=== PATIENT | male | born 1970 | race Caucasian/White ===

== ENCOUNTER 2021-06-20 18:41 | Inpatient (IN) | payer MEDICAID, OTHER ==
[~2021-06-20] VITALS: Ht 177.8 cm; Wt 79.5 kg
[2021-06-20 20:20] LABS: BASO # 0.1 x10^3/uL (0.0-0.2); BASO % 1 % (0-3); EOS # 0.4 x10^3/uL (0.0-0.7); EOS % 4 % (0-3); HEMATOCRIT 40.9 % (39.0-53.0); HEMOGLOBIN 14.2 g/dL (13.0-17.5); LYMPH # 1.3 x10^3/uL (1.0-4.8); LYMPH % 14 % (24-48); MEAN CORPUSCULAR HEMOGLOBIN 30 pg (25-35); MEAN CORPUSCULAR HGB CONC 35 g/dL (31-37); MEAN CORPUSCULAR VOLUME 87 fL (79-100); MONO % 10 % (0-9); NEUT # 6.7 x10^3/uL (1.8-7.7); NEUT % 72 % (31-73); PLATELET COUNT 549 x10^3/uL (140-400); RED BLOOD COUNT 4.72 x10^6/uL (4.30-5.70); RED CELL DISTRIBUTION WIDTH 17.9 % (11.5-14.5); WHITE BLOOD COUNT 9.4 x10^3/uL (4.0-11.0)
[2021-06-20 20:28] LABS: CALCIUM 9.1 mg/dL (8.5-10.1); CREATININE 0.9 mg/dL (0.7-1.3); POTASSIUM 4.9 mmol/L (3.5-5.1)
[2021-06-20 20:33] LABS: ALBUMIN 3.4 g/dL (3.4-5.0); ALBUMIN/GLOBULIN RATIO 0.9 (1.0-1.7); TOTAL BILIRUBIN 0.2 mg/dL (0.2-1.0); TOTAL PROTEIN 7.4 g/dL (6.4-8.2)
--- NOTE | 2021-06-20 20:38 | PHYS DOC ---
Past Medical History Additional Past Medical Histor: covid in May Past Surgical History: Other Additional Past Surgical Histo: cardiac stents 2014, hernia, L femur, L hip General Adult EDM: Chief Complaint: FOOT INJURY PAIN HPI: HPI: Patient is a 50 year old male with a past medical history of diabetes presents with the chief complaint of discolored left toes. Associated symptoms include swelling, pain, and paresthesia. Patient symptoms of swelling, pain, paresthesia started around the time patient was diagnoised with covid on May 17. Patient was hospitalized at [facility] for COVID due to hypoxia. Dscoloration of toes ON and OFF since covid diagnosis. Toes of left foot include 2nd, 3rd, 5th and heal. Patient denies any chest pain or shortness of breath. Review of Systems: Review of Systems: Constitutional: Denies fever or chills. [] Eyes: Denies change in visual acuity. [] HENT: Denies nasal congestion or sore throat. [] Respiratory: Denies cough or shortness of breath. [] Cardiovascular: Denies chest pain or edema. [] GI: Denies abdominal pain, nausea, vomiting, bloody stools or diarrhea. [] : Denies dysuria. [] Musculoskeletal: Denies back pain or joint pain. [positive foot pain] Integument: Denies rash. [positive ischemic] Neurologic: Denies headache, focal weakness or sensory changes. [] Endocrine: Denies polyuria or polydipsia. [] Lymphatic: Denies swollen glands. [] Psychiatric: Denies depression or anxiety. [] Heart Score: C/O Chest Pain: N/A Risk Factors: Risk Factors: DM, Current or recent (<one month) smoker, HTN, HLP, family history of CAD, obesity. Risk Scores: Score 0 - 3: 2.5% MACE over next 6 weeks - Discharge Home Score 4 - 6: 20.3% MACE over next 6 weeks - Admit for Clinical Observation Score 7 - 10: 72.7% MACE over next 6 weeks - Early Invasive Strategies Allergies: Allergies: Allergies Coded Allergies Type Severity Reaction Last Updated Verified codeine Allergy Mild n/v 06/20/21 Yes morphine Allergy Mild n/v 06/20/21 Yes Physical Exam: PE: Constitutional: Well developed, well nourished, no acute distress, non-toxic appearance. [] HENT: Normocephalic, atraumatic, bilateral external ears normal, oropharynx moist, no oral exudates, nose normal. [] Eyes: PERRLA, EOMI, conjunctiva normal, no discharge. [] Neck: Normal range of motion, no tenderness, supple, no stridor. [] Cardiovascular:Heart rate regular rhythm, no murmur [] Lungs & Thorax: Bilateral breath sounds clear to auscultation [] Abdomen: Bowel sounds normal, soft, no tenderness, no masses, no pulsatile masses. [] Skin: Warm, dry, toes and top of left foot erythema, black discoloration of Toes on left foot 2nd, 3rd, 5th and heal. Back: No tenderness, no CVA tenderness. [] Extremities: No tenderness, no cyanosis, no clubbing, ROM intact, no edema. [] Neurologic: Alert and oriented X 3, normal motor function, normal sensory function, no focal deficits noted. [] Psychologic: Affect normal, judgement normal, mood normal. [] Current Patient Data: Labs: Laboratory Tests Test 06/20/21 19:55 White Blood Count 9.4 x10^3/uL (4.0-11.0) Red Blood Count 4.72 x10^6/uL (4.30-5.70) Hemoglobin 14.2 g/dL (13.0-17.5) Hematocrit 40.9 % (39.0-53.0) Mean Corpuscular Volume 87 fL (79-100) Mean Corpuscular Hemoglobin 30 pg (25-35) Mean Corpuscular Hemoglobin Concent 35 g/dL (31-37) Red Cell Distribution Width 17.9 % (11.5-14.5) H Platelet Count 549 x10^3/uL (140-400) H Neutrophils (%) (Auto) 72 % (31-73) Lymphocytes (%) (Auto) 14 % (24-48) L Monocytes (%) (Auto) 10 % (0-9) H Eosinophils (%) (Auto) 4 % (0-3) H Basophils (%) (Auto) 1 % (0-3) Neutrophils # (Auto) 6.7 x10^3/uL (1.8-7.7) Lymphocytes # (Auto) 1.3 x10^3/uL (1.0-4.8) Monocytes # (Auto) 1.0 x10^3/uL (0.0-1.1) Eosinophils # (Auto) 0.4 x10^3/uL (0.0-0.7) Basophils # (Auto) 0.1 x10^3/uL (0.0-0.2) Laboratory Tests 06/20/21 19:55 Vital Signs: Vital Signs Date Time Temp Pulse Resp B/P (MAP) Pulse Ox O2 Delivery O2 Flow Rate FiO2 06/20/21 19:43 98.5 89 20 131/73 93 Room Air 98.5 EKG: EKG: [] Radiology/Procedures: Radiology/Procedures: [] Impression: Exam: CT of abdomen, pelvis and bilateral lower extremities INDICATION: Ischemic toes, history of Covid TECHNIQUE: Sequential axial images through the abdomen, pelvis and left lower extremities obtained following the administration of 100 mL of Omni 350 IV contrast. Sagittal and coronal reformatted images were reconstructed from the axial data and reviewed. 3-D reformatted images were reconstructed from the axial data and reviewed. Exposure: One or more of the following in the visualized dose reduction techniques were utilized for this examination: 1. Automated exposure control 2. Adjustment of the MA and/or KV according to patient size 3. Use of iterative of reconstructive technique Comparisons: None FINDINGS: Heart size is normal. No pericardial effusion. Patchy airspace disease at lung bases bilaterally. No pleural effusion. Visualized portions of the liver, spleen, pancreas, gallbladder and adrenals are unremarkable. No perinephric inflammation or hydronephrosis. No renal or ureteral calculi are identified. Bladder is partially distended and not well evaluated. Prostate is not enlarged. Large amount of stool is noted in the colon. The remaining visualized portions of the large and small bowel are unremarkable. No obstruction. No free intra- abdominal air or fluid identified within the [id number]. Abdominal aorta has normal course and caliber. No enlarged intra-abdominal lymph nodes are identified. No suspicious osseous lesions or acute fractures. Left lower extremity: Common femoral artery is patent. Profunda artery is patent. SFA is patent. Minimal plaque at the popliteal artery without significant stenosis. Anterior artery is patent to the level of the ankle. There is abrupt cut off of the posterior tibial artery at the level of the mid lower leg with re-opacification more distally and remains patent to the ankle. Peroneal artery is patent to the level of the distal tibia. IMPRESSION: 1. Abrupt cut off of the left posterior tibial artery at the level of the mid lower leg, with re-opacification distally which may be secondary to collateral flow. 2. Anterior tibial artery is patent to level the ankle. Peroneal artery is patent to level of the distal tibia. 3. Extensive bilateral airspace disease in the visualized lower lungs favored be infectious or inflammatory in etiology, consistent with history of Covid. Electronically signed by: Sai Dietz MD (06/20/2021 10:50 PM) [facility] DICTATED and SIGNED BY: SAI DIETZ MD DATE: 06/20/21 [id number] 0 Course & Med Decision Making: Course & Med Decision Making Pertinent Labs and Imaging studies reviewed. (See chart for details) [] Patient was evaluated for chief complaint. Work-up consisted of laboratory anal ysis and radiologic imaging. Results reviewed and discussed with patient. Patient found to have arterial occlusion left lower extremity. Patient was also found to be in lactic acidosis. Treatment included IV fluids. Patient was heparinized. Admitted to the hospitalist with vascular surgery consult (Dr Cardenas). Antonio Disclaimer: Antonio Disclaimer: This electronic medical record was generated, in whole or in part, using a voice recognition dictation system. Departure Departure Impression: Primary Impression: Ischemic toe Additional Impression: Arterial occlusion Disposition: ADMITTED INPATIENT Condition: STABLE Referrals: TENNILLE KHOURY MD (PCP) ROQUE RUIZ DO Jun 20, 2021 20:38
--- NOTE | 2021-06-20 21:19 | RAD ---
Exam: Left foot 3 views INDICATION: Pain, discoloration TECHNIQUE: Frontal, lateral and oblique views of the left foot Comparisons: None FINDINGS: Bone mineralization is normal. No acute or healed fractures. Soft tissues are unremarkable. Joint spa hallie are well-maintained. IMPRESSION: No acute osseous abnormality. Electronically signed by: Sai Bailey MD (06/20/2021 9:17 PM) [facility]
[2021-06-20] MEDS ORDERED: HYDROcodone/APAP 5/325MG 1 TAB TABLET PO ONE (21:30)
[2021-06-20] MEDS ORDERED: CONTRAST GIVEN. MC PRN (21:45)
[2021-06-20] MEDS ORDERED: IOHEXOL 350 MG/ML 100 ML VIAL. IV ONE (22:00)
[2021-06-20] MEDS ORDERED: IV NORMAL SALINE 1000ML BAG 1,000 ML IV ONE ×2 (22:00→23:30)
--- NOTE | 2021-06-20 22:52 | RAD ---
Exam: CT of abdomen, pelvis and bilateral lower extremities INDICATION: Ischemic toes, history of Covid TECHNIQUE: Sequential axial images through the abdomen, pelvis and left lower extremities obtained fo llowing the administration of 100 mL of Omni 350 IV contrast. Sagittal and coronal reformatted images were reconstructed from the axial data and reviewed. 3-D reformatted images were reconstructed from the axial data and reviewed. Exposure: One or more of the following in the visualized dose reduction techniques were utilized for this examination: 1. Automated exposure control 2. Adjustment of the MA and/or KV according to patient size 3. Use of iterative of reconstructive technique Comparisons: None FINDINGS: Heart size is normal. No pericardial effusion. Patchy airspace disease at lung bases bilaterally. No pleural effusion. Visualized portions of the liver, spleen, pancreas, gallbladder and adrenals are unremarkable. No perinephric inflammation or hydronephrosis. No renal or ureteral calculi are identified. Bladder is partially distended and not well evaluated. Prostate is not enlarged. Large amount of stool is noted in the colon. The remaining visualized portions of the large and small bowel are unremarkable. No obstruction. No free intra-abdominal air or fluid identified within the [id number]. Abdominal aorta has normal course and caliber. No enlarged intra-abdominal lymph nodes are identified. No suspicious osseous lesions or acute fractures. Left lower extremity: Common femoral artery is patent. Profunda artery is patent. SFA is patent. Minimal plaque at the popliteal artery without significant stenosis. Anterior artery is patent to the level of the ankle. There is abrupt cut off of the posterior tibial artery at the level of the mid lower leg with re-opac ification more distally and remains patent to the ankle. Peroneal artery is patent to the level of the distal tibia. IMPRESSION: 1. Abrupt cut off of the left posterior tibial artery at the level of the mid lower leg, with re-opa cification distally which may be secondary to collateral flow. 2. Anterior tibial artery is patent to level the ankle. Peroneal artery is patent to level of the di stal tibia. 3. Extensive bilateral airspace disease in the visualized lower lungs favored be infectious or infla mmatory in etiology, consistent with history of Covid. Electronically signed by: Sai Bailey MD (06/20/2021 10:50 PM) [facility]
[2021-06-20] MEDS ORDERED: ANTI-COAG MONITOR BY PHARMACY. MC PRN (23:15)
[2021-06-20] MEDS ORDERED: HEPARIN for IV BOLUS 10,000 UNIT/10 ML VIAL. IV PRN (23:15)
[2021-06-21] VITALS (7 sets, daily range): BP systolic 102–171; BP diastolic 57–83
[2021-06-21] MEDS ORDERED: fentaNYL PF VIAL 100 MCG/2 ML VIAL ONE (00:03)
[2021-06-21] MEDS ORDERED: ONDANSETRON PF 4 MG/2 ML VIAL. IVP PRN (00:15)
[2021-06-21] MEDS: HEPARIN 25,000UTS/250ML PREMIX 250 ML IV PRN ×2 (00:26→16:41)
[2021-06-21] MEDS ORDERED: fentaNYL PF VIAL 100 MCG/2 ML VIAL IVP ONE (00:30)
[2021-06-21] MEDS ORDERED: HEPARIN for IV BOLUS 10,000 UNIT/10 ML VIAL. IV ONE (00:30)
[2021-06-21] MEDS ORDERED: HYDROmorphone 2 MG/ML VIAL IVP ONE (01:00)
[2021-06-21] MEDS: fentaNYL PF VIAL 100 MCG/2 ML VIAL IVP PRN ×3 (03:18→19:55)
[2021-06-21] MEDS ORDERED: TRAM50TA PO (04:05)
[2021-06-21] MEDS ORDERED: METF10007 PO (04:05)
--- NOTE | 2021-06-21 07:25 | PDOC1 ---
History and Physical Date of Admission Date of Admission DATE: 06/21/21 TIME: 07:20 Identification/Chief Complaint Chief Complaint Left foot discoloration Source Source: Patient History of Present Illness History of Present Illness Mr Beltran is a 50 year old male with a past medical history of diabetes, CAD s/p MARLA 2013 presents with the chief complaint of discolored left toes. Associated symptoms include swelling, pain, and paresthesia. Patient symptoms of swelling, pain, paresthesia started around the time patient was diagnosed with covid on May 17. Patient was hospitalized at [facility] for COVID due to hypoxia. Since discharge he is weaned off oxygen and is continue to take his home aspirin his home diabetic medications and had just started a walking routine morning he noted this discoloration 06/15/2021. Dscoloration of toes ON and OFF since covid diagnosis. Toes of left foot include 2nd, 3rd, 5th and heel. WBC 9.4, Hb 14.2, platelets 549, NA 142, K4.9, CR 0.9 glucose 315. LFTs within normal laboratory limits Left foot radiograph acute abnormality. Left leg CTA with abrupt cut off of the left posterior tibial artery at the level of the mid lower leg, with re-opacification distally which may be secondary to collateral flow. Admitted for further care Past Medical History Cardiovascular: CAD, HTN Endocrine: Diabetes Past Surgical History Past Surgical History: Hernia Repair, Total hip replacement (left hip) Family History Family History: Diabetes, Heart Disease Social History Smoke: No ALCOHOL: none Drugs: None Current Problem List Problem List Problems Medical Problems: (1) Arterial occlusion Status: Acute (2) Ischemic toe Status: Acute Current Medications Current Medications Current Medications Acetaminophen/ Hydrocodone Bitart (Lortab 5/325) 1 tab 1X ONCE PO Last administered on 06/20/21at 21:10; Start 06/20/21 at 21:30; Stop 06/20/21 at 21: 31; Status DC Sodium Chloride 1,000 ml @ 1,000 mls/hr 1X ONCE IV Last administered on 06/20/21at 21:30; Start 06/20/21 at 22:00; Stop 06/20/21 at 22:59; Status DC Iohexol (Omnipaque 350 Mg/ml) 100 ml 1X ONCE IV Last administered on 06/20/21at 22:00; Start 06/20/21 at 22:00; Stop 06/20/21 at 22:01; Status DC Info (CONTRAST GIVEN -- Rx MONITORING) 1 each PRN DAILY PRN MC SEE COMMENTS; Start 06/20/21 at 21:45; Stop 06/22/21 at 21:44 Sodium Chloride 1,000 ml @ 1,000 mls/hr 1X ONCE IV Last administered on 06/20/21at 23:30; Start 06/20/21 at 23:30; Stop 06/21/21 at 00:29; Status DC Heparin Sodium/ Dextrose 250 ml @ 0 mls/hr CONT PRN IV PER PROTOCOL Last administered on 06/21/21at 00:26; Start 06/20/21 at 23:15 Heparin Sodium (Porcine) (Heparin Sodium) 2,300 unit PRN Q6HRS PRN IV FOR UFH LEVEL LESS THAN 0.2; Start 06/20/21 at 23:15 Heparin Sodium (Porcine) (Heparin Sodium) 1,150 unit PRN Q6HRS PRN IV FOR UFH LEVEL 0.2 - 0.29; Start 06/20/21 at 23:15 Info (Anti-Coagulation Monitoring By Pharmacy) 1 each PRN DAILY PRN MC PER PROTOCOL Last administered on 06/21/21at 02:48; Start 06/20/21 at 23:15 Fentanyl Citrate (Fentanyl 2ml Vial) 50 mcg 1X ONCE IVP Last administered on 06/21/21at 00:06; Start 06/21/21 at 00:30; Stop 06/21/21 at 00:31; Status DC Fentanyl Citrate (Fentanyl 2ml Vial) 100 mcg STK-MED ONCE .ROUTE ; Start 06/21/21 at 00:03; Stop 06/21/21 at 00:03; Status DC Ondansetron HCl (Zofran) 4 mg PRN Q8HRS PRN IVP NAUSEA/VOMITING 1ST CHOICE; Start 06/21/21 at 00:15; Stop 06/22/21 at 00:14 Fentanyl Citrate (Fentanyl 2ml Vial) 50 mcg PRN Q1HR PRN IVP SEVERE PAIN 7-10 Last administered on 06/21/21at 03:18; Start 06/21/21 at 00:15; Stop 06/22/21 at 00:14 Heparin Sodium (Porcine) (Heparin Sodium) 4,000 unit 1X ONCE IV Last administered on 06/21/21at 00:24; Start 06/21/21 at 00:30; Stop 06/21/21 at 00:31; Status DC Hydromorphone HCl (Dilaudid) 0.5 mg 1X ONCE IVP Last administered on 06/21/21at 00:32; Start 06/21/21 at 01:00; Stop 06/21/21 at 01:01; Status DC Active Scripts Active Reported Metformin Hcl 1,000 Mg Tablet 1,000 Mg PO BIDWMEALS Tramadol Hcl 50 Mg Tablet 50 Mg PO DAILY PRN Allergies Allergies: Coded Allergies: codeine (Verified Allergy, Mild, n/v, 06/20/21) morphine (Verified Allergy, Mild, n/v, 06/20/21) ROS General: YES: Fatigue, Malaise; No: Chills, Night Sweats, Appetite, Other PSYCHOLOGICAL ROS: No: Anxiety, Behavioral Disorder, Concentration difficultie, Decreased libido, Depression, Disorientation, Hallucinations, Hostility, Irritablity, Memory difficulties, Mood Swings, Obsessive thoughts, Physical abuse, Sexual abuse, Sleep disturbances, Suicidal ideation, Other Eyes: No Blurry vision, No Decreased vision, No Double vision, No Dry eyes, No Excessive tearing, No Eye Pain, No Itchy Eyes, No Loss of vision, No Photophobia, No Scotomata, No Uses contacts, No Uses glasses, No Other HEENT: No: Heacaches, Visual Changes, Hearing change, Nasal congestion, Nasal discharge, Oral lesions, Sinus pain, Sore Throat, Epistaxis, Sneezing, Snoring, Tinnitus, Vertigo, Vocal changes, Other ALLERGY AND IMMUNOLOGY: No: Hives, Insect Bite Sensitivity, Itchy/Watery Eyes, Nasal Congestion, Post Nasal Drip, Seasonal Allergies, Other Hematological and Lymphatic: No: Bleeding Problems, Blood Clots, Blood Transfusions, Brusing, Night Sweats, Pallor, Swollen Lymph Nodes, Other ENDOCRINE: No: Breast Changes, Galactorrhea, Hair Pattern Changes, Hot Flashes, Malaise/lethargy, Mood Swings, Palpitations, Polydipsia/polyuria, Skin Changes, Temperature Intolerance, Unexpected Weight Changes, Other Breast: No New/Changing Breast Lumps, No Nipple changes, No Nipple discharge, No Other Respiratory: No: Cough, Hemoptysis, Orthopnea, Pleuritic Pain, Shortness of breath, SOB with excertion, Sputum Changes, Stridor, Tachypnea, Wheezing, Other Cardiovascular: No Chest Pain, No Palpitations, No Orthopnea, No Paroxysmal Noc. Dyspnea, No Edema, No Lt Headedness, No Other Gastrointestinal: No Nausea, No Vomiting, No Abdominal Pain, No Diarrhea, No Constipation, No Melena, No Hematochezia, No Other Genitourinary: No Dysuria, No Frequency, No Incontinence, No Hematuria, No Retention, No Discharge, No Urgency, No Pain, No Flank Pain, No Other, No , No , No , No , No , No , No Musculoskeletal: Yes Gait Disturbance, Yes Joint Pain; No Joint Stiffness, No Joint Swelling, No Muscle Pain, No Muscular Weakness, No Pain In:, No Swelling In:, No Other Neurological: No Behavorial Changes, No Bowel/Bladder ControlChng, No Confusion, No Dizziness, No Gait Disturbance, No Headaches, No Impaired Coord/balance, No Memory Loss, No Numbness/Tingling, No Seizures, No Speech Problems, No Tremors, No Visual Changes, No Weakness, No Other Skin: No Dry Skin, No Eczema, No Hair Changes, No Lumps, No Mole Changes, No Mottling, No Nail Changes, No Pruritus, No Rash, No Skin Lesion Changes, No Other, No Acne Physical Exam General: Alert, Oriented X3, Cooperative, mild distress HEENT: Atraumatic, PERRLA, EOMI, Mucous membr. moist/pink Lungs: Clear to auscultation, Normal air movement Heart: S1S2, RRR, no thrills, no rubs, no gallops, no murmurs Abdomen: Normal bowel sounds, Soft, No tenderness, No hepatosplenomegaly, No masses Rectal Exam: not examined Skin: No breakdown, No significant lesion, Other (Close discoloration of distal left third and fifth patient meets criteria for outpatient COVID-19 treatment to prevent worsening disease based on age greater than 50 and coronary artery disease.1) Patient has been given the fact sheet for patients and caregivers for COVID 19 and treatment2) informed of alternatives to receiving what is REGEN-CoV - Casirivimab + Imdevimab3) Patient informed that Regen-CoV is an approved drug and is authorized by the FDA under emergency use authorization..) Neuro: Normal gait, Normal speech, Strength at 5/5 X4 ext, Normal tone, Sensation intact, Cranial nerves 3-12 NL, Reflexes 2+ Psych/Mental Status: Mental status NL, Mood NL Vitals Vitals Vital Signs Date Time Temp Pulse Resp B/P (MAP) Pulse Ox O2 Delivery O2 Flow Rate FiO2 06/21/21 04:00 98.5 78 20 138/78 (98) 90 Room Air 98.5 Labs Labs Laboratory Tests Test 06/20/21 19:55 06/20/21 23:08 White Blood Count 9.4 x10^3/uL (4.0-11.0) Red Blood Count 4.72 x10^6/uL (4.30-5.70) Hemoglobin 14.2 g/dL (13.0-17.5) Hematocrit 40.9 % (39.0-53.0) Mean Corpuscular Volume 87 fL (79-100) Mean Corpuscular Hemoglobin 30 pg (25-35) Mean Corpuscular Hemoglobin Concent 35 g/dL (31-37) Red Cell Distribution Width 17.9 % (11.5-14.5) Platelet Count 549 x10^3/uL (140-400) Neutrophils (%) (Auto) 72 % (31-73) Lymphocytes (%) (Auto) 14 % (24-48) Monocytes (%) (Auto) 10 % (0-9) Eosinophils (%) (Auto) 4 % (0-3) Basophils (%) (Auto) 1 % (0-3) Neutrophils # (Auto) 6.7 x10^3/uL (1.8-7.7) Lymphocytes # (Auto) 1.3 x10^3/uL (1.0-4.8) Monocytes # (Auto) 1.0 x10^3/uL (0.0-1.1) Eosinophils # (Auto) 0.4 x10^3/uL (0.0-0.7) Basophils # (Auto) 0.1 x10^3/uL (0.0-0.2) Sodium Level 142 mmol/L (136-145) Potassium Level 4.9 mmol/L (3.5-5.1) Chloride Level 103 mmol/L (98-107) Carbon Dioxide Level 27 mmol/L (21-32) Anion Gap 12 (6-14) Blood Urea Nitrogen 19 mg/dL (8-26) Creatinine 0.9 mg/dL (0.7-1.3) Estimated GFR (Cockcroft-Gault) 89.0 BUN/Creatinine Ratio 21 (6-20) Glucose Level 315 mg/dL (70-99) Lactic Acid Level 3.3 mmol/L (0.4-2.0) 2.4 mmol/L (0.4-2.0) Calcium Level 9.1 mg/dL (8.5-10.1) Total Bilirubin 0.2 mg/dL (0.2-1.0) Aspartate Amino Transf (AST/SGOT) 22 U/L (15-37) Alanine Aminotransferase (ALT/SGPT) 31 U/L (16-63) Alkaline Phosphatase 94 U/L (46-116) Total Protein 7.4 g/dL (6.4-8.2) Albumin 3.4 g/dL (3.4-5.0) Albumin/Globulin Ratio 0.9 (1.0-1.7) Laboratory Tests Test 06/20/21 19:55 06/20/21 23:08 White Blood Count 9.4 x10^3/uL (4.0-11.0) Red Blood Count 4.72 x10^6/uL (4.30-5.70) Hemoglobin 14.2 g/dL (13.0-17.5) Hematocrit 40.9 % (39.0-53.0) Mean Corpuscular Volume 87 fL (79-100) Mean Corpuscular Hemoglobin 30 pg (25-35) Mean Corpuscular Hemoglobin Concent 35 g/dL (31-37) Red Cell Distribution Width 17.9 % (11.5-14.5) Platelet Count 549 x10^3/uL (140-400) Neutrophils (%) (Auto) 72 % (31-73) Lymphocytes (%) (Auto) 14 % (24-48) Monocytes (%) (Auto) 10 % (0-9) Eosinophils (%) (Auto) 4 % (0-3) Basophils (%) (Auto) 1 % (0-3) Neutrophils # (Auto) 6.7 x10^3/uL (1.8-7.7) Lymphocytes # (Auto) 1.3 x10^3/uL (1.0-4.8) Monocytes # (Auto) 1.0 x10^3/uL (0.0-1.1) Eosinophils # (Auto) 0.4 x10^3/uL (0.0-0.7) Basophils # (Auto) 0.1 x10^3/uL (0.0-0.2) Sodium Level 142 mmol/L (136-145) Potassium Level 4.9 mmol/L (3.5-5.1) Chloride Level 103 mmol/L (98-107) Carbon Dioxide Level 27 mmol/L (21-32) Anion Gap 12 (6-14) Blood Urea Nitrogen 19 mg/dL (8-26) Creatinine 0.9 mg/dL (0.7-1.3) Estimated GFR (Cockcroft-Gault) 89.0 BUN/Creatinine Ratio 21 (6-20) Glucose Level 315 mg/dL (70-99) Lactic Acid Level 3.3 mmol/L (0.4-2.0) 2.4 mmol/L (0.4-2.0) Calcium Level 9.1 mg/dL (8.5-10.1) Total Bilirubin 0.2 mg/dL (0.2-1.0) Aspartate Amino Transf (AST/SGOT) 22 U/L (15-37) Alanine Aminotransferase (ALT/SGPT) 31 U/L (16-63) Alkaline Phosphatase 94 U/L (46-116) Total Protein 7.4 g/dL (6.4-8.2) Albumin 3.4 g/dL (3.4-5.0) Albumin/Globulin Ratio 0.9 (1.0-1.7) Images Images Left foot radiograph: Bone mineralization is normal. No acute or healed fractures. Soft tissues are unremarkable. Joint spaces are well-maintained. IMPRESSION: No acute osseous abnormality. CT of abdomen, pelvis and bilateral lower extremities Heart size is normal. No pericardial effusion. Patchy airspace disease at lung bases bilaterally. No pleural effusion. Visualized portions of the liver, spleen, pancreas, gallbladder and adrenals are unremarkable. No perinephric inflammation or hydronephrosis. No renal or ureteral calculi are identified. Bladder is partially distended and not well evaluated. Prostate is not enlarged. Large amount of stool is noted in the colon. The remaining visualized portions of the large and small bowel are unremarkable. No obstruction. No free intra- abdominal air or fluid identified within the [id number]. Abdominal aorta has normal course and caliber. No enlarged intra-abdominal lymph nodes are identified. No suspicious osseous lesions or acute fractures. Left lower extremity: Common femoral artery is patent. Profunda artery is patent. SFA is patent. Minimal plaque at the popliteal artery without significant stenosis. Anterior artery is patent to the level of the ankle. There is abrupt cut off of the posterior tibial artery at the level of the mid lower leg with re-opacification more distally and remains patent to the ankle. Peroneal artery is patent to the level of the distal tibia. IMPRESSION: 1. Abrupt cut off of the left posterior tibial artery at the level of the mid lower leg, with re-opacification distally which may be secondary to collateral flow. 2. Anterior tibial artery is patent to level the ankle. Peroneal artery is patent to level of the distal tibia. 3. Extensive bilateral airspace disease in the visualized lower lungs favored be infectious or inflammatory in etiology, consistent with history of Covid. VTE Prophylaxis Ordered VTE Prophylaxis Devices: No VTE Pharmacological Prophylaxi: Yes Assessment/Plan Assessment/Plan A/P: Left foot pain -on heparin GTT for concern for some mild limb ischemia. Vascular surgery consulted.. Pain control with IV Dilaudid and p.o. hydrocodone. Diabetes -on Metformin for contrast administration. Hold Invokana. Sliding scale insulin CAD s/p MARLA 2013 -continue ASA. Home meds. HTN - cont home meds HLD - cont statin FEN - ADA diet PPX - heparin GTT CODE - FULL Dispo - inpatient Justifications for Admission Other Justification MAKENZIE DAVILA MD Jun 21, 2021 07:25
[2021-06-21] MEDS ORDERED: ACETAMINOPHEN 325 MG TABLET. PO PRN (07:30)
[2021-06-21] MEDS ORDERED: hydrALAZINE 20 MG/ML VIAL. IVP PRN (07:30)
[2021-06-21] MEDS ORDERED: NITROGLYCERIN SUBLINGUAL 0.4 MG BOTTLE OF 25. SL PRN (07:30)
[2021-06-21] MEDS ORDERED: traMADol 50 MG TABLET PO PRN ×2 (07:30→14:00)
[2021-06-21] MEDS ORDERED: DEXTROSE 50% 25 GM / 50ML DISP.SYRIN. IV PRN (07:30)
[2021-06-21] MEDS: INSULIN LISPRO 300 UNITS/3 ML VIAL. SQ SCH ×3 (08:00→18:07)
[2021-06-21] MEDS: HEPARIN for IV BOLUS 10,000 UNIT/10 ML VIAL. IV PRN ×2 (09:54→17:04)
--- NOTE | 2021-06-21 10:33 | NUR ---
SW following. Discussed with RN, pt from home, room air, ada diet. Vascular following. RN advised no SW needs at this time. SW will continue to follow.
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
[2021-06-21] MEDS: HYDROcodone/APAP 7.5/325MG 1 TAB TABLET PO PRN ×2 (11:15→19:54)
[2021-06-21] MEDS ORDERED: DULA0.75 SQ (12:00)
[2021-06-21] MEDS ORDERED: CANA300T PO (12:00)
[2021-06-21] MEDS ORDERED: GLIP10TA13 PO (12:00)
[2021-06-21] MEDS ORDERED: OMEG1CAP2 PO (12:00)
[2021-06-21] MEDS ORDERED: MULT-732 PO (12:00)
[2021-06-21] MEDS ORDERED: LISI-517 PO (12:00)
[2021-06-21] MEDS ORDERED: ASPI-630 PO (12:00)
[2021-06-21] MEDS ORDERED: ATOR40TA59 PO (12:00)
[2021-06-21] MEDS ORDERED: ALBU2.5V8 IH (12:00)
[2021-06-21] MEDS ORDERED: PANT40TA77 PO (12:00)
[2021-06-21] MEDS ORDERED: ALBUTEROL SULFATE 2.5 MG/3 ML NEBU. INH PRN (14:00)
[2021-06-21] MEDS: glipiZIDE 5 MG TABLET PO SCH (16:38)
[2021-06-21] MEDS: OMEGA-3 FATTY ACIDS/FISH OIL 1,000 MG CAPSULE. PO SCH (19:54)
[2021-06-21] MEDS ORDERED: ZOLPIDEM 5 MG TABLET. PO PRN (20:00)
[2021-06-21] MEDS: ATORVASTATIN CALCIUM 40 MG TABLET. PO SCH (22:13)
[2021-06-22] VITALS (14 sets, daily range): BP systolic 112–153; BP diastolic 63–84
--- NOTE | 2021-06-22 01:38 | NUR ---
heparin drip off at midnight per Dr fernandez's order.
--- NOTE | 2021-06-22 07:19 | PDOC ---
[employer] PROGRESS NOTE Date of Service DOS: DATE: 06/22/21 TIME: 07:18 Chief Complaint Chief Complaint A/P: Left foot pain -on heparin GTT for concern for some mild limb ischemia vs or d/t embolic occlusion. Vascular surgery consulted.. Pain control with IV Dilaudid and p.o. hydrocodone. Diabetes -on Metformin for contrast administration. Hold Invokana. Sliding scale insulin CAD s/p MARLA 2013 -continue ASA. Home meds. HTN - cont home meds HLD - cont statin FEN - ADA diet PPX - heparin GTT CODE - FULL Dispo - inpatient History of Present Illness History of Present Illness Mr Beltran is a 50 year old male with a past medical history of diabetes, CAD s/p MARLA 2013 presents with the chief complaint of discolored left toes. Associated symptoms include swelling, pain, and paresthesia. Patient symptoms of swelling, pain, paresthesia started around the time patient was diagnosed with covid on May 17. Patient was hospitalized at [facility] for COVID due to hypoxia. Since discharge he is weaned off oxygen and is continue to take his home aspirin his home diabetic medications and had just started a walking routine morning he noted this discoloration 06/15/2021. Dscoloration of toes ON and OFF since covid diagnosis. Toes of left foot include 2nd, 3rd, 5th and heel. WBC 9.4, Hb 14.2, platelets 549, NA 142, K4.9, CR 0.9 glucose 315. LFTs within normal laboratory limits Left foot radiograph acute abnormality. Left leg CTA with abrupt cut off of the left posterior tibial artery at the level of the mid lower leg, with re-opacification distally which may be secondary to collateral flow. Admitted for further care On heparin GTT, to have angioplasty of left posterior tibial artery. Cardiology consulted by vascular surgery Vitals/I&O Vitals/I&O: Vital Signs Date Time Temp Pulse Resp B/P (MAP) Pulse Ox O2 Delivery O2 Flow Rate FiO2 06/22/21 03:12 98.3 76 20 112/65 (81) 94 Room Air 98.3 I & O 06/21/21 06/21/21 06/22/21 15:00 23:00 07:00 Output Total 700 ml 550 ml 600 ml Balance -700 ml -550 ml -600 ml Physical Exam General: Alert, Oriented X3, Cooperative, mild distress Abdomen: Normal bowel sounds, Soft, No tenderness, No hepatosplenomegaly, No masses Skin: No breakdown, No significant lesion, Other (Close discoloration of distal left third and fifth patient meets criteria for outpatient COVID-19 treatment to prevent worsening disease based on age greater than 50 and coronary artery disease.1) Patient has been given the fact sheet for patients and caregivers for COVID 19 and treatment2) informed of alternatives to receiving what is REGEN-CoV - Casirivimab + Imdevimab3) Patient informed that Regen-CoV is an approved drug and is authorized by the FDA under emergency use authorization..) Labs Labs: Laboratory Tests Test 06/21/21 08:30 06/21/21 08:45 06/21/21 11:19 06/21/21 16:10 Heparin Anti-Xa Act, Unfractionated < 0.10 IU/mL (0.30-0.70) 0.17 IU/mL (0.30-0.70) Glucose (Fingerstick) 199 mg/dL (70-99) 182 mg/dL (70-99) Test 06/21/21 17:12 06/21/21 20:53 06/21/21 22:45 06/21/21 23:10 Glucose (Fingerstick) 268 mg/dL (70-99) 216 mg/dL (70-99) SARS-CoV-2 Antigen (Rapid) Negative (NEGATIVE) Heparin Anti-Xa Act, Unfractionated 0.29 IU/mL (0.30-0.70) Assessment and Plan Assessmemt and Plan Problems Medical Problems: (1) Arterial occlusion Status: Acute (2) Ischemic toe Status: Acute Comment Review of Relevant I have reviewed the following items cherise (where applicable) has been applied. Medications: Current Medications Medications (Trade) Dose Ordered Sig/Anne Route PRN Reason Start Time Stop Time Status Last Admin Dose Admin Tramadol HCl (Ultram) 50 mg PRN Q6HRS PRN PO MODERATE PAIN, SEVERE PAIN 06/21/21 07:30 06/21/21 08:59 Insulin Human Lispro (HumaLOG) 0-9 UNITS TIDWMEALS SQ 06/21/21 08:00 06/21/21 18:07 Acetaminophen/ Hydrocodone Bitart (Lortab 7.5/325) 1 tab PRN Q6HRS PRN PO MOD - SEVERE PAIN, 2nd CHOICE 06/21/21 10:00 06/21/21 19:54 Atorvastatin Calcium (Lipitor) 40 mg DAILY PO 06/21/21 21:00 06/21/21 22:13 Glipizide (Glucotrol) 10 mg BIDBFRMEAL PO 06/21/21 16:30 06/21/21 16:38 Fish Oil (Fish Oil) 1,000 mg BID PO 06/21/21 21:00 06/21/21 19:54 Zolpidem Tartrate (Ambien) 5 mg PRN QHS PRN PO INSOMNIA 06/21/21 20:00 06/21/21 22:13 Justifications for Admission Other Justification MAKENZIE DAVILA MD Jun 22, 2021 07:19
[2021-06-22] MEDS ORDERED: PANTOPRAZOLE 40 MG TABLET.DR. PO SCH (07:30)
[2021-06-22] MEDS: glipiZIDE 5 MG TABLET PO SCH ×2 (07:30→16:07)
[2021-06-22] MEDS ORDERED: IODIXANOL 320 MG/ML 100 ML VIAL. ONE (07:33)
[2021-06-22] MEDS ORDERED: LIDOCAINE 1% Multi-Dose 20 ML VIAL. ONE (07:33)
--- NOTE | 2021-06-22 07:57 | PDOC1 ---
History and Physical Date of Procedure Date of Admission 06/22/21 Procedure Procedure Left lower extremity angiography with possible intervention Indication Indication Rest pain and ischemic toes left foot History of Present Illness Reason for Visit See H&P on 06/21 Past Medical History Past Medical History See note on 06/21 Current Medications Current Medications Current Medications Acetaminophen/ Hydrocodone Bitart (Lortab 5/325) 1 tab 1X ONCE PO Last administered on 06/20/21at 21:10; Start 06/20/21 at 21:30; Stop 06/20/21 at 21:31 ; Status DC Sodium Chloride 1,000 ml @ 1,000 mls/hr 1X ONCE IV Last administered on 06/20/21at 21:30; Start 06/20/21 at 22:00; Stop 06/20/21 at 22:59; Status DC Iohexol (Omnipaque 350 Mg/ml) 100 ml 1X ONCE IV Last administered on 06/20/21at 22:00; Start 06/20/21 at 22:00; Stop 06/20/21 at 22:01; Status DC Info (CONTRAST GIVEN -- Rx MONITORING) 1 each PRN DAILY PRN MC SEE COMMENTS; Start 06/20/21 at 21:45; Stop 06/22/21 at 21:44 Sodium Chloride 1,000 ml @ 1,000 mls/hr 1X ONCE IV Last administered on 06/20/21at 23:30; Start 06/20/21 at 23:30; Stop 06/21/21 at 00:29; Status DC Heparin Sodium/ Dextrose 250 ml @ 0 mls/hr CONT PRN IV PER PROTOCOL Last administered on 06/21/21at 16:41; Start 06/20/21 at 23:15 Heparin Sodium (Porcine) (Heparin Sodium) 2,300 unit PRN Q6HRS PRN IV FOR UFH LEVEL LESS THAN 0.2 Last administered on 06/21/21at 17:04; Start 06/20/21 at 23:15 Heparin Sodium (Porcine) (Heparin Sodium) 1,150 unit PRN Q6HRS PRN IV FOR UFH LEVEL 0.2 - 0.29; Start 06/20/21 at 23:15 Info (Anti-Coagulation Monitoring By Pharmacy) 1 each PRN DAILY PRN MC PER PROTOCOL Last administered on 06/21/21at 02:48; Start 06/20/21 at 23:15 Fentanyl Citrate (Fentanyl 2ml Vial) 50 mcg 1X ONCE IVP Last administered on 06/21/21at 00:06; Start 06/21/21 at 00:30; Stop 06/21/21 at 00:31; Status DC Fentanyl Citrate (Fentanyl 2ml Vial) 100 mcg STK-MED ONCE .ROUTE ; Start 06/21/21 at 00:03; Stop 06/21/21 at 00:03; Status DC Ondansetron HCl (Zofran) 4 mg PRN Q8HRS PRN IVP NAUSEA/VOMITING 1ST CHOICE; Start 06/21/21 at 00:15; Stop 06/22/21 at 00:14; Status DC Fentanyl Citrate (Fentanyl 2ml Vial) 50 mcg PRN Q1HR PRN IVP SEVERE PAIN 7-10 Last administered on 06/21/21at 19:55; Start 06/21/21 at 00:15; Stop 06/22/21 at 00:14; Status DC Heparin Sodium (Porcine) (Heparin Sodium) 4,000 unit 1X ONCE IV Last administered on 06/21/21at 00:24; Start 06/21/21 at 00:30; Stop 06/21/21 at 00:31; Status DC Hydromorphone HCl (Dilaudid) 0.5 mg 1X ONCE IVP Last administered on 06/21/21at 00:32; Start 06/21/21 at 01:00; Stop 06/21/21 at 01:01; Status DC Tramadol HCl (Ultram) 50 mg PRN Q6HRS PRN PO MODERATE PAIN, SEVERE PAIN Last administered on 06/21/21at 08:59; Start 06/21/21 at 07:30 Nitroglycerin (Nitrostat) 0.4 mg PRN Q5MIN PRN SL CHEST PAIN; Start 06/21/21 at 07:30 Acetaminophen (Tylenol) 650 mg PRN Q6HRS PRN PO MILD PAIN / TEMP > 100.3'F; Start 06/21/21 at 07:30 Hydralazine HCl (Apresoline Inj) 10 mg PRN Q4HRS PRN IVP ELEVATED BP, SEE COMMENTS; Start 06/21/21 at 07:30 Insulin Human Lispro (HumaLOG) 0-9 UNITS TIDWMEALS SQ Last administered on 06/21/21at 18:07; Start 06/21/21 at 08:00 Dextrose (Dextrose 50%-Water Syringe) 12.5 gm PRN Q15MIN PRN IV SEE COMMENTS; Start 06/21/21 at 07:30 Acetaminophen/ Hydrocodone Bitart (Lortab 7.5/325) 1 tab PRN Q6HRS PRN PO MOD - SEVERE PAIN, 2nd CHOICE Last administered on 06/21/21at 19:54; Start 06/21/21 at 10:00 Albuterol Sulfate (Ventolin Neb Soln) 2.5 mg PRN Q4HRS PRN INH wheezing; Start 06/21/21 at 14:00 Aspirin (Aspirin Chewable) 81 mg DAILY PO ; Start 06/22/21 at 09:00 Atorvastatin Calcium (Lipitor) 40 mg DAILY PO Last administered on 06/21/21at 22:13; Start 06/21/21 at 21:00 Lisinopril (Prinivil) 5 mg DAILY PO ; Start 06/22/21 at 09:00 Pantoprazole Sodium (Protonix) 40 mg DAILYAC PO ; Start 06/22/21 at 07:30 Tramadol HCl (Ultram) 50 mg PRN DAILY PRN PO PAIN; Start 06/21/21 at 14:00; Status Cancel Glipizide (Glucotrol) 10 mg BIDBFRMEAL PO Last administered on 06/21/21at 16:38; Start 06/21/21 at 16:30 Multivitamins (Thera M Plus) 1 tab DAILY PO ; Start 06/22/21 at 09:00 Fish Oil (Fish Oil) 1,000 mg BID PO Last administered on 06/21/21at 19:54; Start 06/21/21 at 21:00 Zolpidem Tartrate (Ambien) 5 mg PRN QHS PRN PO INSOMNIA Last administered on 06/21/21at 22:13; Start 06/21/21 at 20:00 Lidocaine HCl (Lidocaine 1% 20ml Vial) 20 ml STK-MED ONCE .ROUTE ; Start 06/22/21 at 07:33; Stop 06/22/21 at 07:33; Status DC Iodixanol (Visipaque 320) 100 ml STK-MED ONCE .ROUTE ; Start 06/22/21 at 07:33; Stop 06/22/21 at 07:33; Status DC Heparin Sodium/ Sodium Chloride 1,000 ml @ As Directed STK-MED ONCE .ROUTE ; Start 06/22/21 at 07:33; Stop 06/22/21 at 07:34; Status DC Active Scripts Active Reported Proair Hfa Inhaler (Albuterol Sulfate) 8.5 Gm Hfa.aer.ad 2 Puff IH PRN Q4-6HRS PRN 21 Days Lovaza (Chester-3 Acid Ethyl Esters) 1 Gm Capsule 1 Cap PO BID Men's 50 Plus Multivitamin Tab (Multivit-Min/Folic/Vit K/Lycop) 1 Each Tablet 1 Each PO DAILY Aspirin 81 Mg Tab.chew 1 Tab PO DAILY Invokana (Canagliflozin) 300 Mg Tablet 1 Tab PO DAILY 30 Days Atorvastatin Calcium 40 Mg Tablet 1 Tab PO DAILY Protonix (Pantoprazole Sodium) 40 Mg Tablet.dr 40 Mg PO DAILYAC Glipizide 10 Mg Tablet 1 Tab PO BID Lisinopril 5 Mg Tablet 1 Tab PO DAILY Trulicity (Dulaglutide) 0.75 Mg/0.5 Ml Pen.injctr 0.75 Mg SQ WEEKLY Metformin Hcl 1,000 Mg Tablet 1,000 Mg PO BIDWMEALS Tramadol Hcl 50 Mg Tablet 50 Mg PO DAILY PRN Allergies Allergies: Coded Allergies: codeine (Verified Allergy, Mild, n/v, 06/20/21) morphine (Verified Allergy, Mild, n/v, 06/20/21) Physical Exam Vital Signs Vital Signs Date Time Temp Pulse Resp B/P (MAP) Pulse Ox O2 Delivery O2 Flow Rate FiO2 06/22/21 03:12 98.3 76 20 112/65 (81) 94 Room Air 98.3 Heart: Regular rate Neuro: Normal speech Psych/Mental Status: Mental status NL Vascular Palpable popliteal and femoral pulses, non palpable pedal pulses on the left Other ASA 2; Mallampati 2 Assessment Assessment Ischemic left toes and rest pain likely related to COVID related hypercoagulability with thrombosis Plan Plan Proceed with left lower extremity angiogram and possible intervention MILTON SCHERER MD Jun 22, 2021 07:57
[2021-06-22] MEDS: INSULIN LISPRO 300 UNITS/3 ML VIAL. SQ SCH ×3 (08:00→17:39)
[2021-06-22] MEDS ORDERED: MIDAZOLAM HCL/PF 2 MG/2 ML VIAL. ONE ×2 (08:15→09:00)
[2021-06-22] MEDS ORDERED: fentaNYL PF VIAL 100 MCG/2 ML VIAL ONE ×3 (08:15→09:59)
[2021-06-22] MEDS ORDERED: HEPARIN for IV BOLUS 10,000 UNIT/10 ML VIAL. ONE (08:15)
[2021-06-22] MEDS ORDERED: MIDAZOLAM HCL/PF 2 MG/2 ML VIAL. IV ONE (08:30)
[2021-06-22] MEDS ORDERED: fentaNYL PF VIAL 100 MCG/2 ML VIAL IV ONE (08:30)
[2021-06-22] MEDS ORDERED: LIDOCAINE 1% Multi-Dose 20 ML VIAL. INJ ONE (08:30)
[2021-06-22] MEDS: IODIXANOL 320 MG/ML 100 ML VIAL. IART ONE ×2 (08:51→10:26)
[2021-06-22] MEDS ORDERED: LISINOPRIL 5 MG TABLET. PO SCH (09:00)
[2021-06-22] MEDS ORDERED: HEPARIN for IV BOLUS 10,000 UNIT/10 ML VIAL. IV ONE (09:00)
[2021-06-22] MEDS ORDERED: 0.9 % SODIUM CHLORIDE 10 ML DISP.SYRIN. IV PRN (09:00)
[2021-06-22] MEDS ORDERED: CLOPIDOGREL BISULFATE 75 MG TABLET PO SCH (09:00)
[2021-06-22] MEDS ORDERED: MULTIVITAMIN with MINERAL TABLET. PO SCH (09:00)
[2021-06-22] MEDS ORDERED: ACETAMINOPHEN 325 MG TABLET. PO PRN (09:00)
[2021-06-22] MEDS ORDERED: IV NORMAL SALINE 1000ML BAG 1,000 ML IV SCH (09:00)
[2021-06-22] MEDS ORDERED: ASPIRIN CHEWABLE 81 MG TABLET. PO SCH (09:00)
[2021-06-22] MEDS ORDERED: NITROGLYCERIN 200 MCG/2 ML SYRINGE FOR CATH/VASC LAB. IART ONE (10:15)
[2021-06-22] MEDS ORDERED: PROTAMINE 250 MG/25 ML VIAL IV ONE (10:30)
[2021-06-22] MEDS ORDERED: NITROGLYCERIN 200 MCG/2 ML SYRINGE FOR CATH/VASC LAB. ONE (10:56)
--- NOTE | 2021-06-22 11:11 | OP ---
DATE OF SURGERY: 06/22/2021 PREOPERATIVE DIAGNOSES: 1. Left lower extremity ischemic rest pain. 2. Peripheral arterial disease. POSTOPERATIVE DIAGNOSES: 1. Left lower extremity ischemic rest pain. 2. Peripheral arterial disease. INDICATIONS FOR PROCEDURE: This is a 50-year-old male who presented with a month and a half of worsening discoloration and rest pain in his toes in the left foot. CT angiography demonstrated widely patent inflow vessels; however, there was concern for significant disease in the tibial vessels that required further evaluation and potential intervention with angiography to address his rest pain and impending tissue loss. DESCRIPTION OF PROCEDURE: The patient was put on the micro lab analyst table. A surgical timeout was performed. Moderate sedation was administered with a total amount of sedation time of 117 minutes and a total of 2 mg of Versed and 250 mcg of fentanyl was administered. Antegrade access was then obtained under direct ultrasound guidance, which was necessary to confirm appropriate access into the common femoral artery. The access was performed in the left common femoral artery. An image was saved to the medical record of the ultrasound image and access. I then upsized to a 6 Gibraltarian sheath and positioned this within the left superficial femoral artery. Angiographic runs were then obtained of the left lower extremity and this revealed the SFA and popliteal arteries to be widely patent. The tibial trifurcation was widely patent. The anterior tibial artery was patent throughout its course, but occluded in the distal dorsalis pedis just below the ankle with no evidence of filling of the plantar arch from the dorsalis pedis. The posterior tibial artery was patent at its origin, but was occluded for 10 cm just cephalad to the ankle with refilling of the lateral plantar, although the lateral and medial plantar did appear diseased below the ankle. The peroneal occluded distally. I then selectively catheterized the left posterior tibial artery and using an 0.014 platform cross the occlusion in the posterior tibial artery. Sequential angioplasty was then performed first with a 2 mm balloon followed by a 2.5 mm Specialty (chocolate) balloon. This was done with slow prolonged inflation. Prior to intervention, heparin was given and a therapeutic ACT was confirmed. Following angioplasty, angiographic images demonstrated there was significant recoil of the posterior tibial artery following treatment with a small residual lumen gained. Also, it was clear that there was significant disease in the plantar arteries. Given these findings, I did not feel that additional interventions were likely to reopen the posterior tibial artery and therefore completed the procedure. At this point, a Perclose device was then used to close the femoral artery puncture with good hemostasis and the patient was then transferred to recovery room in stable condition. PROCEDURE 1. Angioplasty of the left posterior tibial artery. 2. Ultrasound-guided access, left common femoral artery, CPT 89435. 3. Placement of closure device, left common femoral, [id number]. RECOMMENDATIONS: The patient is to be maintained on anticoagulation with antiplatelet therapy and follow up with me in 1 month to monitor the progress with his toe ischemia. SPECIMENS: None. DRAINS: None. COMPLICATIONS: None. ARBEN/YEHUDA DR: Reyna TID: [id number]
[2021-06-22] MEDS: ATORVASTATIN CALCIUM 40 MG TABLET. PO SCH (11:12)
[2021-06-22] MEDS: HYDROcodone/APAP 7.5/325MG 1 TAB TABLET PO PRN (11:12)
[2021-06-22] MEDS: OMEGA-3 FATTY ACIDS/FISH OIL 1,000 MG CAPSULE. PO SCH (11:12)
[2021-06-22] MEDS ORDERED: HYDROmorphone 2 MG/ML VIAL IVP PRN ×2 (13:00→15:30)
[2021-06-22 13:01] LABS: HEMATOCRIT 37.9 % (39.0-53.0); HEMOGLOBIN 12.8 g/dL (13.0-17.5); RED BLOOD COUNT 4.4 x10^6/uL (4.30-5.70); RED CELL DISTRIBUTION WIDTH 17.9 % (11.5-14.5); WHITE BLOOD COUNT 7.5 x10^3/uL (4.0-11.0)
[2021-06-22 13:08] LABS: PROTHROMBIN TIME PATIENT 12.5 SEC (11.7-14.0)
--- NOTE | 2021-06-22 15:12 | PDOC2 ---
HARPREET SIMPSON NEON TUBE PUMPER 06/22/21 1512: CARDIAC CONSULT DATE OF CONSULT Date of Consult DATE: 06/22/21 TIME: 14:52 REASON FOR CONSULT Reason for Consult: eval on LE possible cardioembolic source REFERRING PHYSICIAN Referring Physician: Joshua SOURCE Source: Chart review, Patient HISTORY OF PRESENT ILLNESS HISTORY OF PRESENT ILLNESS This is a 50 yo male admitted for complains of left foot pain and discoloration. He was recently treated at [facility] for covid-19 pneumonia on 05/17/2021 and stayed in the hospital for 6 days. No intubation.. After further evaluation he was noted with ischemic left toes with claudication which is likely COVID related hypercoagulability. Today he had ABATTOIR MANAGER to his left posterior tibial artery. Consult is for possible cardioembolism. No prior hx of VTE. . No prior hx of arrhythmia. He does have hx of CAD with stentst in 2013. He follows with Dr. Shay at [facility]. No chest pain or SOA PAST MEDICAL HISTORY Cardiovascular: CAD (no known intervention), HTN, CT Pulmonary: Asthma, Pneumonia (covid-19), Other (autonomic neuropathy) Musculoskeletal: low back pain, Osteoarthritis Infectious disease: No pertinent hx ENT: Other (nonproliferative retinopathy) Renal/: No pertinent hx Endocrine: Diabetes (2) PAST SURGICAL HISTORY Past Surgical History: Hernia Repair, Tonsillectomy, Other (left hip injury repair; PCI) SOCIAL HISTORY Smoke: Quit ALCOHOL: none Drugs: None Lives: with Family CURRENT MEDICATIONS CURRENT MEDICATIONS Current Medications Medications (Trade) Dose Ordered Sig/Anne Route PRN Reason Start Time Stop Time Status Last Admin Dose Admin Aspirin (Aspirin Chewable) 81 mg DAILY PO 06/22/21 09:00 06/22/21 11:12 Atorvastatin Calcium (Lipitor) 40 mg DAILY PO 06/21/21 21:00 06/22/21 11:12 Lisinopril (Prinivil) 5 mg DAILY PO 06/22/21 09:00 06/22/21 11:13 Glipizide (Glucotrol) 10 mg BIDBFRMEAL PO 06/21/21 16:30 06/21/21 16:38 Multivitamins (Thera M Plus) 1 tab DAILY PO 06/22/21 09:00 06/22/21 11:12 Fish Oil (Fish Oil) 1,000 mg BID PO 06/21/21 21:00 06/22/21 11:12 Zolpidem Tartrate (Ambien) 5 mg PRN QHS PRN PO INSOMNIA 06/21/21 20:00 06/21/21 22:13 Heparin Sodium/ Sodium Chloride (HEPARIN for ARTERIAL LINE FLUSH) 1,000 unit 1X ONCE IART 06/22/21 08:30 06/22/21 08:36 DC 06/22/21 08:30 Heparin Sodium/ Sodium Chloride (HEPARIN for ARTERIAL LINE FLUSH) 1,000 unit 1X ONCE IART 06/22/21 08:30 06/22/21 08:36 DC 06/22/21 08:30 Midazolam HCl (Versed) 2 mg 1X ONCE IV 06/22/21 08:30 06/22/21 08:36 DC 06/22/21 08:38 Fentanyl Citrate (Fentanyl 2ml Vial) 100 mcg 1X ONCE IV 06/22/21 08:30 06/22/21 08:36 DC 06/22/21 08:38 Iodixanol (Visipaque 320) 100 ml 1X ONCE IART 06/22/21 08:30 06/22/21 08:36 DC 06/22/21 10:26 Lidocaine HCl (Lidocaine 1% 20ml Vial) 20 ml 1X ONCE INJ 06/22/21 08:30 06/22/21 08:36 DC 06/22/21 08:51 Sodium Chloride 1,000 ml @ 100 mls/hr Q10H IV 06/22/21 09:00 06/22/21 11:12 Heparin Sodium (Porcine) (Heparin Sodium) 8,000 unit 1X ONCE IV 06/22/21 09:00 06/22/21 09:12 DC 06/22/21 09:00 Nitroglycerin (Nitroglycerin) 200 mcg 1X ONCE IART 06/22/21 10:15 06/22/21 10:16 DC 06/22/21 10:15 Hydromorphone HCl (Dilaudid) 0.5 mg PRN Q3HRS PRN IVP MODERATE TO SEVERE PAIN 06/22/21 13:00 06/22/21 13:16 ALLERGIES ALLERGIES: Coded Allergies: codeine (Verified Allergy, Mild, n/v, 06/20/21) morphine (Verified Allergy, Mild, n/v, 06/20/21) ROS Review of System 14 point ROS evaluated with pertinent positives noted per HPI PHYSICAL EXAM General: Alert, Oriented X3, Cooperative, No acute distress HEENT: Atraumatic, Mucous membr. moist/pink Lungs: Clear to auscultation, Normal air movement Heart: Regular rate (SR via EKG), Normal S1, Normal S2, No murmurs Abdomen: Soft, No tenderness Extremities: No cyanosis, No edema, Other (2+ DP to right and 1+ to left DP) Skin: No significant lesion, Other (ischemic tips of left toes) Neuro: Normal speech, Sensation intact Psych/Mental Status: Mental status NL, Mood NL MUSCULOSKELETAL: Osteoarthritic changes both hands VITALS/I&O VITALS/I&O: Vital Signs Date Time Temp Pulse Resp B/P (MAP) Pulse Ox O2 Delivery O2 Flow Rate FiO2 06/22/21 14:37 Room Air 06/22/21 11:50 91 18 149/83 (105) 92 06/22/21 10:50 98.6 98.6 06/22/21 10:37 2.0 I & O 06/21/21 06/21/21 06/22/21 15:00 23:00 07:00 Output Total 700 ml 550 ml 600 ml Balance -700 ml -550 ml -600 ml LABS Lab: Laboratory Tests Test 06/21/21 16:10 06/21/21 17:12 06/21/21 20:53 06/21/21 22:45 Heparin Anti-Xa Act, Unfractionated 0.17 IU/mL (0.30-0.70) L Glucose (Fingerstick) 268 mg/dL (70-99) H 216 mg/dL (70-99) H SARS-CoV-2 RNA (NIURKA) Negative (Negative) SARS-CoV-2 Antigen (Rapid) Negative (NEGATIVE) Test 06/21/21 23:10 06/22/21 07:40 06/22/21 09:31 06/22/21 09:54 Heparin Anti-Xa Act, Unfractionated 0.29 IU/mL (0.30-0.70) L Glucose (Fingerstick) 250 mg/dL (70-99) H Activated Clotting Time 227 sec (92-181) 235 sec (92-181) Test 06/22/21 11:54 06/22/21 12:40 Glucose (Fingerstick) 289 mg/dL (70-99) H White Blood Count 7.5 x10^3/uL (4.0-11.0) Red Blood Count 4.40 x10^6/uL (4.30-5.70) Hemoglobin 12.8 g/dL (13.0-17.5) L Hematocrit 37.9 % (39.0-53.0) L Mean Corpuscular Volume 86 fL (79-100) Mean Corpuscular Hemoglobin 29 pg (25-35) Mean Corpuscular Hemoglobin Concent 34 g/dL (31-37) Red Cell Distribution Width 17.9 % (11.5-14.5) H Platelet Count 536 x10^3/uL (140-400) H Prothrombin Time 12.5 SEC (11.7-14.0) Prothrombin Time INR 0.9 (0.8-1.1) Laboratory Tests 06/22/21 12:40 ASSESSMENT/PLAN ASSESSMENT/PLAN 1. Severe PAD to LLE with claudications: S/P ABATTOIR MANAGER to left posterior tibial artery. Pain better 2. HTN: controlled 3. HLP 4. DM2: BG uncontrolled. per PCP 5. Hx of CAD; stents in 2013 6. Recent Covid-19 Pneumonia in 05/17/2021 7. Thrombocytosis Recommendations 1. There is a suspicion for cardioembolism vs hypercoagulable state secondary to previosu covid-19 . Will obtain EKG and TTE. 2. Continue secondary prevention measures 3. Being bridge to coumadin 4. Follow up with Dr. shay Cardiology at [facility]. Could consider MCOT but culprit is likely from covid-19 related hypercoagulable state GLADYS TO MD 06/23/21 1120: CARDIAC CONSULT ASSESSMENT/PLAN ASSESSMENT/PLAN Late entry for 06/22/21 Pt. seen and examined. 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 Discussed with Dr. Marquez. HARPREET SIMPSON NEON TUBE PUMPER Jun 22, 2021 15:12 GLADYS TO MD Jun 23, 2021 11:20
[2021-06-22] MEDS ORDERED: HYDROcodone/APAP 10/325 1 TAB TABLET PO PRN (15:30)
--- NOTE | 2021-06-22 15:31 | NUR ---
Pharmacy Warfarin Dosing Note S: Pharmacy consulted to assist with anticoagulation therapy started 06/22/21 O: CORA SPRINGER is a 50 year old M with DVT/PE LABS: Last INR: 0.9 Last HGB: 12.8 Last HCT: 37.9 Last PLT: 536 A:INR of 0.9 is below desired range. Target range for this patient is: 2 -3 P: Warfarin dose: 7.5 mg Today at 1600 Bridge Therapy: Heparin Therapeutic Next INR due 06/23/21 AM Pharmacy anticoagulation service will continue to follow. LYNDA BLANCO RPH, 06/22/21 6140
--- NOTE | 2021-06-22 15:53 | EKG ---
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
[2021-06-22] MEDS ORDERED: WARFARIN 7.5 MG TABLET. PO ONE (16:00)
--- NOTE | 2021-06-22 17:25 | CARD ---
MR#: [id number] Date of Study: 06/22/2021 Ordering Physician: HARPREET SIMPSON, Referring Physician: HARPREET SIMPSON, Tech: Michaela Mcdonough Jerri, [facility] APPROVED REPORT EXAM: Two-dimensional and M-mode echocardiogram with Doppler and color Doppler. Other Information Quality : AverageHR: 92bpm INDICATION Peripheral Artery Disease RISK FACTORS Hyperlipidemia Diabetes Smoking 2D DIMENSIONS Left Atrium(2D)3.6 (1.6-4.0cm)IVSd1.0 (0.7-1.1cm) Aortic Root(2D)3.8 (2.0-3.7cm)LVDd4.8 (3.9-5.9cm) LVOT Diameter2.1 (1.8-2.4cm)PWd1.2 (0.7-1.1cm) LVDs3.1 (2.5-4.0cm)FS (%) 36.3 % SV71.3 mlLVEF(%)65.9 (>50%) Aortic Valve AoV Peak Filiberto.161.6cm/sAoV VTI29.6cm AO Peak GR.10.4mmHgLVOT VTI 25.61cm AO Mean GR.6mmHg Mitral Valve MV E Nqxvnoot44.0cm/sMV DECEL [id number] MV A Sipqfkud27.9cm/sE/A Ratio1.4 TDI Lateral E' P. V10.17cm/sMedial E' P. V9.27cm/s E/Lateral E'8.9E/Medial E'9.8 Tricuspid Valve TR P. Ylmowbhk977cp/sRAP [id number] TR Peak Gr.90yaKnJIDU07wfWv LEFT VENTRICLE The left ventricle is normal size. There is mild concentric left ventricular hypertrophy. The left ve ntricular systolic function is normal and the ejection fraction is within normal range. The Ejection Fraction is 55-60%. There is normal LV segmental wall motion. Transmitral Doppler flow pattern is Gra de II-pseudonormal filling dynamics. RIGHT VENTRICLE The right ventricle is normal size. There is normal right ventricular wall thickness. The right ventr icular systolic function is normal. ATRIA The left atrium size is normal. The right atrium size is normal. The interatrial septum is intact wit h no evidence for an atrial septal defect or patent foramen ovale as noted on 2-D or Doppler imaging. AORTIC VALVE The aortic valve is normal in structure and function. Doppler and Color Flow revealed no significant aortic regurgitation. There is no significant aortic valvular stenosis. Calculated aortic valve area is 2.89 cm2 with maximum pressure gradient of 11 mmHg and mean pressure gradient of 6 mmHg. MITRAL VALVE The mitral valve is normal in structure and function. There is no evidence of mitral valve prolapse. There is no mitral valve stenosis. Doppler and Color-flow revealed trace mitral regurgitation. TRICUSPID VALVE The tricuspid valve is normal in structure and function. Doppler and Color Flow revealed trace tricus pid regurgitation with an estimated PAP of 22 mmHg. There is no tricuspid valve stenosis. PULMONIC VALVE The pulmonic valve is not well visualized. Doppler and Color Flow revealed trace pulmonic valvular re gurgitation. GREAT VESSELS The aortic root is normal in size. The IVC is normal in size and collapses >50% with inspiration. PERICARDIAL EFFUSION There is a trace pericardial effusion with no hemodynamic significance. Critical Notification Critical Value: No <Conclusion> The left ventricle is normal size. The left ventricular systolic function is normal and the ejection fraction is within normal range. The Ejection Fraction is 55-60%. There is normal LV segmental wall motion. There is mild concentric left ventricular hypertrophy. Doppler and Color Flow revealed no significant aortic regurgitation. There is no significant aortic valvular stenosis. Doppler and Color-flow revealed trace mitral regurgitation. Doppler and Color Flow revealed trace tricuspid regurgitation with an estimated PAP of 22 mmHg. Signed by : Lawrence Harkins MD Electronically Approved : 06/22/2021 17:24:56
[2021-06-22] MEDS ORDERED: EMPA25TA PO ×2 (17:51→17:53)
[2021-06-22] MEDS ORDERED: APIX5TAB PO ×2 (17:51→17:53)
--- NOTE | 2021-06-22 20:26 | NUR ---
Patient discharge home with self care today via wheelchair accompanied by aid and spouse. Patient is stable, IV removed, prescriptions, and discharge paperwork given to patient. Patient verbalized understanding of following up and discharge instruction.
--- NOTE | 2021-06-23 07:06 | PDOC3 ---
Discharge Summary Visit Information Date of Admission: Jun 21, 2021 Date of Discharge: Jun 23, 2021 Admitting Diagnosis: Left foot arterial occlusive disease Final Diagnosis Problems Medical Problems: (1) Arterial occlusion Status: Acute (2) Ischemic toe Status: Acute Brief Hospital Course Allergies Allergies Coded Allergies Type Severity Reaction Last Updated Verified codeine Allergy Mild n/v 06/20/21 Yes morphine Allergy Mild n/v 06/20/21 Yes Vital Signs Vital Signs Date Time Temp Pulse Resp B/P (MAP) Pulse Ox O2 Delivery O2 Flow Rate FiO2 06/22/21 19:00 98.3 92 18 146/76 (99) 90 Room Air 98.3 06/22/21 10:37 2.0 Lab Results Laboratory Tests Test 06/21/21 08:30 06/21/21 08:45 06/21/21 11:19 06/21/21 16:10 Heparin Anti-Xa Act, Unfractionated < 0.10 IU/mL (0.30-0.70) 0.17 IU/mL (0.30-0.70) Glucose (Fingerstick) 199 mg/dL (70-99) 182 mg/dL (70-99) Test 06/21/21 17:12 06/21/21 20:53 06/21/21 22:45 06/21/21 23:10 Glucose (Fingerstick) 268 mg/dL (70-99) 216 mg/dL (70-99) SARS-CoV-2 RNA (NIURKA) Negative (Negative) SARS-CoV-2 Antigen (Rapid) Negative (NEGATIVE) Heparin Anti-Xa Act, Unfractionated 0.29 IU/mL (0.30-0.70) Test 06/22/21 07:40 06/22/21 09:31 06/22/21 09:54 06/22/21 11:54 Glucose (Fingerstick) 250 mg/dL (70-99) 289 mg/dL (70-99) Activated Clotting Time 227 sec (92-181) 235 sec (92-181) Test 06/22/21 12:40 06/22/21 17:23 White Blood Count 7.5 x10^3/uL (4.0-11.0) Red Blood Count 4.40 x10^6/uL (4.30-5.70) Hemoglobin 12.8 g/dL (13.0-17.5) Hematocrit 37.9 % (39.0-53.0) Mean Corpuscular Volume 86 fL (79-100) Mean Corpuscular Hemoglobin 29 pg (25-35) Mean Corpuscular Hemoglobin Concent 34 g/dL (31-37) Red Cell Distribution Width 17.9 % (11.5-14.5) Platelet Count 536 x10^3/uL (140-400) Prothrombin Time 12.5 SEC (11.7-14.0) Prothromb Time International Ratio 0.9 (0.8-1.1) Glucose (Fingerstick) 285 mg/dL (70-99) Laboratory Tests Test 06/22/21 07:40 06/22/21 09:31 06/22/21 09:54 06/22/21 11:54 Glucose (Fingerstick) 250 mg/dL (70-99) 289 mg/dL (70-99) Activated Clotting Time 227 sec (92-181) 235 sec (92-181) Test 06/22/21 12:40 06/22/21 17:23 White Blood Count 7.5 x10^3/uL (4.0-11.0) Red Blood Count 4.40 x10^6/uL (4.30-5.70) Hemoglobin 12.8 g/dL (13.0-17.5) Hematocrit 37.9 % (39.0-53.0) Mean Corpuscular Volume 86 fL (79-100) Mean Corpuscular Hemoglobin 29 pg (25-35) Mean Corpuscular Hemoglobin Concent 34 g/dL (31-37) Red Cell Distribution Width 17.9 % (11.5-14.5) Platelet Count 536 x10^3/uL (140-400) Prothrombin Time 12.5 SEC (11.7-14.0) Prothromb Time International Ratio 0.9 (0.8-1.1) Glucose (Fingerstick) 285 mg/dL (70-99) Brief Hospital Course Mr Beltran is a 50 year old male with a past medical history of diabetes, CAD s/p MARLA 2013 presents with the chief complaint of discolored left toes. Associated symptoms include swelling, pain, and paresthesia. Patient symptoms of swelling, pain, paresthesia started around the time patient was diagnosed with covid on May 17. Patient was hospitalized at [facility] for COVID due to hypoxia. Since discharge he is weaned off oxygen and is continue to take his home aspirin his home diabetic medications and had just started a walking routine morning he noted this d iscoloration 06/15/2021. Dscoloration of toes ON and OFF since covid diagnosis. Toes of left foot include 2nd, 3rd, 5th and heel. WBC 9.4, Hb 14.2, platelets 549, NA 142, K4.9, CR 0.9 glucose 315. LFTs within normal laboratory limits Left foot radiograph acute abnormality. Left leg CTA with abrupt cut off of the left posterior tibial artery at the level of the mid lower leg, with re-opacification distally which may be secondary to collateral flow. Admitted for further care To angioplasty of left posterior tibial artery by vascular surgery, no stenting performed. Cardiology consulted by vascular surgery for echocardiogram. No clear sign of bleeding cardioembolic phenomenon. Likely this is COVID-19 peripheral arterial disease. Transition to Eliquis therapy for secondary prevention and discharged home for 1 month follow-up with vascular surgery. Problem list: Left foot pain -on heparin GTT for concern for some mild limb ischemia vs or d/t embolic occlusion. Vascular surgery consulted.. Pain control with IV Dilaudid and p.o. hydrocodone. Diabetes -on Metformin for contrast administration. Hold Invokana. Sliding scale insulin CAD s/p MARLA 2013 -continue ASA. Home meds. HTN - cont home meds HLD - cont statin Greater than 30 minutes spent on d/c home Discharge Information Condition at Discharge: Improved Follow Up: Weeks (1) Disposition/Orders: D/C to Home Scheduled Apixaban (Eliquis) 5 Mg Tablet, 5 MG PO BID for Thrombus for 30 Days, #60 Ref 2 Prescribed by: MAKENZIE DAVILA MD on 06/22/21 1753 Aspirin (Aspirin) 81 Mg Tab.chew, 1 TAB PO DAILY for heart, #30 Ref 3 (Reported) Entered as Reported by: CHUCK MONTGOMERY on 06/21/21 1200 Last Action: Continued on 06/21/21 1401 by MAKENZIE DAVILA MD Atorvastatin Calcium (Atorvastatin Calcium) 40 Mg Tablet, 1 TAB PO DAILY for cholesterol, #30 Ref 5 (Reported) Entered as Reported by: CHUCK MONTGOMERY on 8/16/21 1200 Last Action: Continued on 06/21/211400 by MAKENZIE DAVILA MD Canagliflozin (Invokana) 300 Mg Tablet, 1 TAB PO DAILY for dm for 30 Days, #30 Ref 0 (Reported) Entered as Reported by: CHUCK MONTGOMERY on 06/21/211199 Last Action: New Order on 06/21/211199 by CHUCK MONTGOMERY Dulaglutide (Trulicity) 0.75 Mg/0.5 Ml Pen.injctr, 0.75 MG SQ WEEKLY for DM, (Reported) Entered as Reported by: CHUCK MONTGOMERY on 06/21/211199 Last Action: New Order on 06/21/211199 by CHUCK MONTGOMERY Empagliflozin (Jardiance) 25 Mg Tablet, 25 MG PO DAILY for DM2 for 30 Days, #30 Ref 11 Prescribed by: MAKENZIE DAVILA MD on 06/22/21 175 Glipizide (Glipizide) 10 Mg Tablet, 1 TAB PO BID for dm, #60 Ref 5 (Reported) Entered as Reported by: CHUCK MONTGOMERY on 06/21/211199 Last Action: Converted on 06/21/211400 by MAKENZIE DAVILA MD Lisinopril (Lisinopril) 5 Mg Tablet, 1 TAB PO DAILY for htn, #30 Ref 5 (Report ed) Entered as Reported by: CHUCK MONTGOMERY on 06/21/211199 Last Action: Continued on 06/21/211400 by MAKENZIE DAVILA MD Metformin Hcl (Metformin Hcl) 1,000 Mg Tablet, 1,000 MG PO BIDWMEALS for diabetic, (Reported) Entered as Reported by: JAMIE PATTEN on 06/21/21 0405 Last Taken: Unknown Dose on 06/20/211999 Last Action: HELD on 06/21/21 1400 by MAKENZIE DAVILA MD Multivit-Min/Folic/Vit K/Lycop (Men's 50 Plus Multivitamin Tab) 1 Each Tablet, 1 EACH PO DAILY for supplement, (Reported) Entered as Reported by: CHUCK MONTGOMERY on 06/21/211199 Last Action: Converted on 06/21/211400 by MAKENZIE DAVILA MD Prim-3 Acid Ethyl Esters (Lovaza) 1 Gm Capsule, 1 CAP PO BID for supplement, #120 Ref 5 (Reported) Entered as Reported by: CHUCK MONTGOMERY on 06/21/211199 Last Action: Converted on 06/21/211400 by MAKENZIE DAVILA MD Pantoprazole Sodium (Protonix ) 40 Mg Tablet.dr, 40 MG PO DAILYAC for GERD, (Reported) Entered as Reported by: CHUCK MONTGOMERY on 06/21/211199 Last Action: Continued on 06/21/211400 by MAKENZIE DAVILA MD Scheduled PRN Albuterol Sulfate (Proair Hfa Inhaler) 8.5 Gm Hfa.aer.ad, 2 PUFF IH PRN Q4-6HRS PRN for wheezing for 21 Days, #1 Ref 0 (Reported) Entered as Reported by: CHUCK MONTGOMERY on 06/21/211199 Last Action: Continued on 06/21/211400 by MAKENZIE DAVILA MD Tramadol Hcl (Tramadol Hcl) 50 Mg Tablet, 50 MG PO DAILY PRN for PAIN, Ref 0 (Reported) Entered as Reported by: JAMIE PATTEN on 06/21/215 Last Taken: Unknown Dose on 06/19/211999 Last Action: Continued on 06/21/211400 by MAKENZIE DAVILA MD Justicifation of Admission Dx: Justifications for Admission: Justification of Admission Dx: Yes MAKENZIE DAVILA MD Jun 23, 2021 07:06
== END 2021-06-22 20:32 | disposition home or self-care (01) | DRG 253 ==
LOC: ER 18:41 → 4 NORTH 06-21 00:05 → OBSVTOIN 06-21 14:00
PROVIDERS: ADMIT Student in an Organized Health Care Education/Training Program; ATTEND Student in an Organized Health Care Education/Training Program
PROC: 047S3ZZ Dilation of Left Posterior Tibial Artery, Percutaneous Approach (ICD-10-PCS; principal; 2021-06-22)
PROC: B41G1ZZ Fluoroscopy of Left Lower Extremity Arteries using Low Osmolar Contrast (ICD-10-PCS; 2021-06-22)
DX: E11.51 Type 2 diabetes mellitus with diabetic peripheral angiopathy without gangrene (principal); D68.59 Other primary thrombophilia; I25.10 Atherosclerotic heart disease of native coronary artery without angina pectoris; Z96.642 Presence of left artificial hip joint; I10 Essential (primary) hypertension; E78.5 Hyperlipidemia, unspecified; E11.319 Type 2 diabetes mellitus with unspecified diabetic retinopathy without macular edema; Z20.822 Contact with and (suspected) exposure to COVID-19; J45.909 Unspecified asthma, uncomplicated; M19.90 Unspecified osteoarthritis, unspecified site; R09.02 Hypoxemia; Z88.5 Allergy status to narcotic agent; Z95.5 Presence of coronary angioplasty implant and graft; Z87.01 Personal history of pneumonia (recurrent); Z86.16 Personal history of COVID-19; Z83.3 Family history of diabetes mellitus; Z79.82 Long term (current) use of aspirin
CPT/HCPCS: 37228; 96361; 96374; 96375; 99285; G0269; 36415; 73630; 73706; 75710; 76937; 80053; 82962; 83605; 85025; 85027; 85347; 85520; 85610; 87426; 93005; 93306; 99152; 99153; C1769; C1894; G0378; G0379; J1170; J1644; J1815; J2250; J3010; J3490; J7030; Q9967; U0003; U0005

== ENCOUNTER 2021-07-13 06:12 | Day surgery (SDC) | payer MEDICAID ==
[~2021-07-13] VITALS: Ht 177.8 cm; Wt 77.2 kg
[~2021-07-13 06:12] MED LIST: ALBU2.5V8 IH; APIX5TAB PO; ASPI-630 PO; ATOR40TA59 PO; CANA300T PO; CARV3.12 PO; DULA0.75 SQ; EMPA25TA PO; FLUT100D2 IH; GLIP10TA13 PO; HYDROmorphone 2 MG/ML VIAL IVP PRN; IV RINGERS,LACTATED 1000ML 1,000 ML IV SCH; LISI-517 PO; METF10007 PO; MORPHINE SULFATE 2 MG/ML INJ. IVP PRN; MULT-732 PO; OMEG1CAP2 PO; PANT40TA77 PO; PROCHLORPERAZINE 10 MG/2 ML VIAL. IVP PRN; TRAM50TA PO; fentaNYL PF VIAL 100 MCG/2 ML VIAL IVP PRN
[2021-07-13 06:52] VITALS: BP 120/69
[2021-07-13 07:06] LABS: BASO # 0.1 x10^3/uL (0.0-0.2); BASO % 1 % (0-3); EOS # 0.3 x10^3/uL (0.0-0.7); EOS % 5 % (0-3); HEMATOCRIT 39.8 % (39.0-53.0); HEMOGLOBIN 13.2 g/dL (13.0-17.5); LYMPH # 1.1 x10^3/uL (1.0-4.8); LYMPH % 16 % (24-48); MEAN CORPUSCULAR HEMOGLOBIN 28 pg (25-35); MEAN CORPUSCULAR HGB CONC 33 g/dL (31-37); MEAN CORPUSCULAR VOLUME 86 fL (79-100); MONO # 0.7 x10^3/uL (0.0-1.1); MONO % 9 % (0-9); NEUT # 4.8 x10^3/uL (1.8-7.7); NEUT % 69 % (31-73); PLATELET COUNT 310 x10^3/uL (140-400); RED BLOOD COUNT 4.65 x10^6/uL (4.30-5.70); RED CELL DISTRIBUTION WIDTH 17.5 % (11.5-14.5)
[2021-07-13] MEDS ORDERED: LIDOCAINE 2% PF 5 ML VIAL. ONE (07:14)
[2021-07-13] MEDS ORDERED: PROPOFOL 10 MG/ML (20ML) VIAL. IV ONE (07:14)
[2021-07-13] MEDS ORDERED: MIDAZOLAM HCL/PF 2 MG/2 ML VIAL. ONE (07:14)
[2021-07-13] MEDS ORDERED: fentaNYL PF VIAL 100 MCG/2 ML VIAL ONE ×2 (07:14→08:51)
[2021-07-13 07:17] LABS: CALCIUM 9.5 mg/dL (8.5-10.1); CREATININE 0.9 mg/dL (0.7-1.3); POTASSIUM 4.6 mmol/L (3.5-5.1)
[2021-07-13] MEDS: INSULIN LISPRO 100 UNIT/ML 3ML VIAL for OP,RR ONLY. SQ PRN ×2 (07:27→08:48)
[2021-07-13] MEDS ORDERED: HYDR-2759 PO (07:46)
--- NOTE | 2021-07-13 07:48 | DISCH ---
DISCHARGE INSTRUCTIONS Condition on Discharge Condition on Discharge: Stable Activity After Discharge Activity Instructions for Disc: Activity as tolerated Bathing Instructions: Shower-keep dressing dry Exercise Instruction after Dis: Progress as tolerated Weight Bearing Status after Di: Partial weight bearing Sexual Activity Restrictions: with off-loading 1/2 shoe Diet after Discharge Diet after Discharge: Cardiac, Diabetic No Calorie Level Diet Texture: Regular Wound Incision Care Wound/Incision Care: Reinforce dressing PRN Checks after Discharge Checks after discharge: Check blood sugar, ac/hs, Check your Temp as needed Contacting the DRLuci after DC Call your doctor for: If your condition worsens Follow-Up Follow up with: call for follow up with Dr. Pereyra [phone] ALISHA BARRIENTOS APRN Jul 13, 2021 07:48
[2021-07-13] MEDS ORDERED: PHENYLEPHRINE in 0.9% NACL PF 1 MG/10 ML SYRINGE. IV ONE (07:51)
[2021-07-13] MEDS ORDERED: ONDANSETRON PF 4 MG/2 ML VIAL. ONE (08:07)
[2021-07-13] MEDS ORDERED: ePHEDrine PF IN SALINE 50 MG/10 ML SYRINGE. IV ONE (08:08)
--- NOTE | 2021-07-13 08:39 | DISCH ---
DISCHARGE INSTRUCTIONS Condition on Discharge Condition on Discharge: Stable Activity After Discharge Activity Instructions for Disc: Activity as tolerated Bathing Instructions: Shower-keep dressing dry Exercise Instruction after Dis: Progress as tolerated Weight Bearing Status after Di: Partial weight bearing Sexual Activity Restrictions: with off-loading 1/2 shoe Diet after Discharge Diet after Discharge: Cardiac, Diabetic No Calorie Level Diet Texture: Regular Wound Incision Care Wound/Incision Care: Reinforce dressing PRN Wound Care Equipment: Dressings (Remove dressing in 2 days and apply dry gauze to cover the incision daily to protect incisions on toes) Checks after Discharge Checks after discharge: Check blood sugar, ac/hs, Check your Temp as needed Contacting the DRLuci after DC Call your doctor for: If your condition worsens Follow-Up Follow up with: call for follow up with Dr. Pereyra [phone] MILTON PEREYRA MD Jul 13, 2021 08:39
--- NOTE | 2021-07-13 08:43 | PDOC ---
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 Pereyra [employer] Alisha Barrientos NP Anesthesia Type: General Blood Loss 5cc Specimens Obtained left 2nd and 3rd toe Findings adequate bleeding, clean without purulence Complications none Operative Note see dictated note ALISHA BARRIENTOS FLOW MACHINE OPERATOR Jul 13, 2021 08:43
[2021-07-13] MEDS: fentaNYL PF VIAL 100 MCG/2 ML VIAL IVP PRN ×2 (08:53→09:07)
[2021-07-13] MEDS ORDERED: HYDROcodone/APAP 5/325MG 1 TAB TABLET PO ONE (09:00)
[2021-07-13] MEDS ORDERED: INSULIN LISPRO 100 UNIT/ML 3ML VIAL for OP,RR ONLY. SQ ONE ×2 (09:00)
--- NOTE | 2021-07-13 09:00 | OP ---
DATE OF SURGERY: 07/13/2021 SURGEON: Daniel Pereyra MD GLASS SANDER: Genny Lewis APRN PROCEDURES: 1. Left partial second and third toe amputation. 2. Sharp excisional debridement of skin and subcutaneous tissue, left fifth distal phalanx, 1 x 1 cm. PREOPERATIVE DIAGNOSES: 1. Dry gangrene involving the second, third and fifth toes on the left. 2. COVID associated tibial pedal artery thrombosis. POSTOPERATIVE DIAGNOSES: 1. Dry gangrene involving the second, third and fifth toes on the left. 2. COVID associated tibial pedal artery thrombosis. INDICATIONS FOR PROCEDURE: This is a 50-year-old male who resulting from COVID infection had thrombosis of his distal tibial and pedal arteries. Attempted angioplasty of the posterior tibial artery resulted in a recoil. He had resultant dry gangrene of second, third and fifth toes and partial dry gangrene of his left first toe. He was consented for second and third toe amputation and fifth toe debridement. DESCRIPTION OF PROCEDURE: The patient was brought to the operative theater and induced under general anesthesia with LMA. The left foot was then prepped and draped in standard sterile fashion with Betadine. Preoperative antibiotics were administered and surgical timeout was performed. I then began with a fishmouth shaped incision over the third toe proximal to the area of necrosis. This required taking the skin incision back to the middle phalanx. I then sharply dissected down to bone and then dislocated the proximal interphalangeal joint. I then used a rongeur to resect back to healthy bone in the proximal phalanx to allow for a tension-free skin closure. I then turned my attention to the second toe and performed a similar fishmouth shaped incision this time over the middle phalanx near the distal interphalangeal joint as the necrosis was less extensive. I dissected down to bone sharply with the scalpel and then dislocated the distal interphalangeal joint. I then used the rongeur to resect back to the middle phalanx to allow again for a tension-free skin closure over the toe amputation site. I then used a 15 blade scalpel to sharply excise hypertrophic callus, necrotic skin and subcutaneous tissue over the left fifth toe for measurement of 1 x 1 cm. This was excised sharply with a 15 blade scalpel down to healthy viable bleeding subcutaneous fat. There was no exposed bone. We then irrigated all wounds. Hemostasis was assured and the second and third toe amputation sites were then closed with a running 4-0 nylon. Clean dressings were then applied and the patient was then awakened, extubated and transferred to recovery room in stable condition. ESTIMATED BLOOD LOSS: Less than 50 mL COMPLICATIONS: None. The presence of the loan officer assistant was necessary for exposure and assistance with resection of bone and incision and closure. ELIZABETH DR: Reyna TID: [id number]
[2021-07-13] MEDS ORDERED: SEVOFLURANE 61 TO 120 MINUTES. IH ONE (09:17)
[2021-07-13 09:33] VITALS: BP 129/77
--- NOTE | 2021-07-15 17:08 | PATHOLOGY ---
[facility] Accession Number: [id number] . 01 Material submitted: . toe - LEFT SECOND AND THIRD TOE AMPUTATIONS. Modifiers: left, second, third . 01 Clinical history: . 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 02 Diagnosis: Left second and third toe amputations: - Gangrenous necrosis of distal toes with focal acute cellulitis and with focal marrow necrosis and acute osteomyelitis of distal phalangeal bones. - Proximal amputation margins of second and third toes viable. (JPM:scar; 07/15/2021) MBR 07/15/2021 1102 Local . 02 Electronically signed: . Jose Batista MD, Pathologist NPI- [id number] . 01 Gross description: . The specimen is received in formalin, labeled "Jose Beltran, left second and third toe amputations". It consists of 2 distal toe segments measuring 1.6 cm long by 1.8 cm in diameter and 3.0 cm long by 1.6 cm in diameter. The skin and soft tissue at the resection margin of each toe appears grossly viable and is differentially inked. Each toe segment displays a smooth bony articular surface. The distal tip of each toe appears purple-black, dusky and indurated. Each toe displays a jones thickened nail. A account representative longitudinal section from each toe is submitted in A1-A2 following decalcification. (MRF; 07/13/2021) MFE/MFE 07/13/2021 1635 Local . 02 Pathologist provided ICD-10: M86.172, L03.032, I96 . 02 CPT . 189983, 034120 Specimen Comment: A courtesy copy of this report has been sent to [phone] Specimen Comment: 2230 Specimen Comment: Report sent to / DR KHOURY Performed at: 01 [facility] [address] [id number] MD Beau Dover MD Phone: [phone] Performed at: [facility] [address] [place], [place] [id number] MD Jose Batista MD Phone: [phone]
== END 2021-07-13 09:54 | disposition home or self-care (01) ==
LOC: SURG 06:12
PROVIDERS: ATTEND Surgery Vascular Surgery
DX: I73.9 Peripheral vascular disease, unspecified (principal); M86.172 Other acute osteomyelitis, left ankle and foot; L03.032 Cellulitis of left toe; I10 Essential (primary) hypertension; K21.9 Gastro-esophageal reflux disease without esophagitis; E11.9 Type 2 diabetes mellitus without complications; F41.9 Anxiety disorder, unspecified; Z87.891 Personal history of nicotine dependence; Z79.82 Long term (current) use of aspirin; Z79.84 Long term (current) use of oral hypoglycemic drugs; Z79.899 Other long term (current) drug therapy; Z98.890 Other specified postprocedural states; Z20.822 Contact with and (suspected) exposure to COVID-19
CPT/HCPCS: 11042; 28810; 36415; 80048; 82962; 85025; 87426; A4930; A6402; A6449; J0690; J1815; J2250; J2370; J2405; J2704; J3010; J7040; 88305; 88311

== ENCOUNTER → 2022-02-21 | Outpatient (CLI) | payer OTHER ==
[~2022-02-21] MED LIST changes: -EMPA25TA PO; +EMPA25TA3 PO; +HYDR-2759 PO; -HYDROmorphone 2 MG/ML VIAL IVP PRN; -IV RINGERS,LACTATED 1000ML 1,000 ML IV SCH; -LISI-517 PO; +LISI5TAB15 PO; -MORPHINE SULFATE 2 MG/ML INJ. IVP PRN; -PROCHLORPERAZINE 10 MG/2 ML VIAL. IVP PRN; -fentaNYL PF VIAL 100 MCG/2 ML VIAL IVP PRN
--- NOTE | 2022-02-21 14:57 | RAD ---
EXAM: XR SHOULDER_RIGHT 2+ VIEWS, XR LT HIP (WITH OR WITHOUT PELVIS) 2 VIEWS 02/21/2022 12:09 PM CLINICAL INDICATION: Left hip pain, surgery on hip as indicated. Right shoulder pain. COMPARISON: CT of the left lower extremity 06/20/2021 TECHNIQUE: 3 views of the right shoulder. 3 views of the left hip and pelvis. FINDINGS: Right shoulder: No acute fracture. Alignment is normal. Mild acromial clavicular degenerative joint d isease. Glenohumeral joint is maintained. Mild bony spurring at the greater tuberosity. Left hip: There is severe joint space narrowing of the left hip with large femoral head and acetabula r osteophytes. There is degenerative remodeling of the articular surfaces. Mild degenerative joint di sease of the right hip. The pubic symphysis, sacroiliac joints of the lumbar spine are unremarkable. Articular surfaces IMPRESSION: 1. Right shoulder: Mild acromioclavicular degenerative joint disease. 2. Left hip: Severe degenerative joint disease of the left hip. Electronically signed by: Rupa Pope MD (02/21/2022 2:54 PM) [id number]
== END ==
LOC: RAD 11:48
PROVIDERS: ATTEND Anesthesiology Pain Medicine
DX: Z02.71 Encounter for disability determination (principal); M19.011 Primary osteoarthritis, right shoulder; M16.12 Unilateral primary osteoarthritis, left hip; M75.81 Other shoulder lesions, right shoulder; M25.752 Osteophyte, left hip; M25.852 Other specified joint disorders, left hip
CPT/HCPCS: 73030; 73502